=== PATIENT | male | born 1945 | race Caucasian/White ===

== ENCOUNTER 2018-01-06 07:55 | Inpatient (IN) | payer OTHER ==
[2018-01-06] VITALS (18 sets, daily range): BP systolic 86–139; BP diastolic 38–87
[~2018-01-06] VITALS: Ht 172.7 cm; Wt 62.8 kg
[2018-01-06 08:52] LABS: Basophils # (auto) 0 uL; Basophils % (auto) 0.3 % (0.0-2.0); Eosinophils # (auto) 0.1 uL; Eosinophils % (auto) 0.6 % (0.0-7.0); Hematocrit 14.9 % (41.0-53.0); Lymphocytes # (auto) 2.2 uL; Lymphocytes % (auto) 17.3 % (10.0-50.0); Mean Corpuscular Hemoglobin 32.6 pg (28.0-32.0); Mean Corpuscular Hgb Conc. 31.5 g/dL (32.0-36.0); Mean Corpuscular Volume 103.5 fL (80.0-100.0); Monocytes # (auto) 1.1 uL; Monocytes % (auto) 8.8 % (0.0-12.0); Neutrophils # (auto) 9.2 uL; Nucleated Red Blood Cells % 0.5 %; Platelet Count (auto) 158 10^3/uL (140-450); Red Blood Cells 1.44 10^6/uL (4.5-5.90); Red Cell Distribution Width 17.3 % (11.8-14.3); White Blood Cell 12.6 10^3/uL (4.4-10.8)
[2018-01-06 09:04] LABS: Hemoglobin 4.7 g/dL (13.5-17.5)
[2018-01-06 09:10] LABS: Albumin 2.2 g/dL (3.4-5.0); BUN/Creatinine Ratio 45.4; Potassium 3.5 mmol/L (3.5-5.1)
[2018-01-06 09:12] LABS: Lactic Acid w/Reflex 10.2 mmol/L (0.4-2.0)
[2018-01-06 09:15] LABS: Bilirubin, Total 0.1 mg/dL (0.2-1.0); Total Protein 4.3 g/dL (6.4-8.2)
[2018-01-06] MEDS ORDERED: SODIUM CHLORIDE 0.9% 250 ML IV ONE (10:08)
[2018-01-06 10:41] LABS: Urine Bacteria NONE SEEN /hpf (None Seen); Urine Blood 3+ /uL (Negative); Urine Mucus FEW (None Seen); Urine Specific Gravity 1.019 (1.001-1.035); Urine WBC 801 /hpf (0 - 3)
[2018-01-06] MEDS ORDERED: ALLO300T2 PO (11:13)
[2018-01-06] MEDS ORDERED: AMIO200T33 PO (11:13)
[2018-01-06] MEDS ORDERED: WARF2TAB49 PO (11:13)
[2018-01-06] MEDS ORDERED: FOLITAB22 PO (11:13)
[2018-01-06] MEDS ORDERED: MET50T PO (11:13)
[2018-01-06] MEDS ORDERED: PRAV20TA3 PO (11:13)
[2018-01-06] MEDS ORDERED: AML5T PO (11:13)
[2018-01-06] MEDS ORDERED: DILT240C PO (11:13)
[2018-01-06] MEDS ORDERED: PHYTONADIONE (VIT K)10 MG/ML 1ML VIAL IV ONE (12:00)
[2018-01-06] MEDS ORDERED: cefTRIAXone 1GM/10ml IVPUSH 10 ML IV ONE ×2 (12:30→16:00)
[2018-01-06] MEDS: SODIUM CHLORIDE 0.9% 1,000 ML IV SCH (15:52)
[2018-01-06] MEDS ORDERED: ACETAMINOPHEN 500 MG TAB PO PRN (16:00)
[2018-01-06] MEDS ORDERED: LORazepam 0.5 MG TAB PO PRN (16:00)
[2018-01-06] MEDS ORDERED: PANTOPRAZOLE 40 MG/10 ML VIAL IV ONE (16:00)
[2018-01-06] MEDS ORDERED: PROMETHAZINE HCL 25 MG/ML 1ML IV PRN (16:00)
[2018-01-06] MEDS ORDERED: TEMAZEPAM 15 MG CAP PO PRN (16:00)
[2018-01-06] MEDS ORDERED: NITROGLYCERIN 0.4 MG SL TAB SL PRN (16:00)
[2018-01-06] MEDS ORDERED: HYDROcodone-ACET 5/325MG TAB PO PRN (16:00)
[2018-01-06] MEDS ORDERED: MORPHINE SULFATE 4 MG/ML SYR/VIAL IV PRN ×2 (16:00)
[2018-01-06] MEDS: metroNIDAZOLE 500MG/100ML 100 ML IV SCH ×2 (16:03→22:06)
[2018-01-06 16:26] LABS: CRP High Sensitivity 0.04 mg/dL (< 0.3)
[2018-01-06 18:27] LABS: Hematocrit 24.4 % (41.0-53.0); Hemoglobin 7.8 g/dL (13.5-17.5)
[2018-01-06] MEDS ORDERED: THIAMINE HCL 100 MG/ML 2ML VIAL IV ONE (19:30)
[2018-01-06 21:59] LABS: INR 1.27 (0.9-1.15); Prothrombin Time 13.9 sec (9.37-12.3)
[2018-01-06] MEDS: ALBUTEROL SULF 2.5 MG/0.5ML(0.5%) NEB SOLN NEB PRN (23:07)
[2018-01-06] MEDS: IPRATROPIUM BROM 0.5 MG/2.5ML INH SOL NEB PRN (23:07)
[2018-01-07] MEDS: SODIUM CHLORIDE 0.9% 1,000 ML IV SCH (00:04)
[2018-01-07 01:00] VITALS: BP 129/68
[2018-01-07 01:02] LABS: Hematocrit 23.2 % (41.0-53.0); Hemoglobin 7.9 g/dL (13.5-17.5)
[2018-01-07] MEDS: metroNIDAZOLE 500MG/100ML 100 ML IV SCH ×2 (03:43→09:48)
[2018-01-07 05:24] VITALS: BP 104/61
[2018-01-07 06:21] LABS: INR 1.09 (0.9-1.15); Partial Thromboplastin Time 24.7 sec (22.64-33.71); Prothrombin Time 11.9 sec (9.37-12.3)
[2018-01-07 06:25] LABS: Basophils # (auto) 0 uL; Eosinophils # (auto) 0 uL; Eosinophils % (auto) 0.5 % (0.0-7.0); Hemoglobin 7.7 g/dL (13.5-17.5); Monocytes # (auto) 0.6 uL; Platelet Count (auto) 85 10^3/uL (140-450); White Blood Cell 5.2 10^3/uL (4.4-10.8)
[2018-01-07 06:27] LABS: Basophils % (auto) 0.2 % (0.0-2.0); Hematocrit 22.4 % (41.0-53.0); Lymphocytes # (auto) 1.6 uL; Lymphocytes % (auto) 30.3 % (10.0-50.0); Mean Corpuscular Hemoglobin 32.2 pg (28.0-32.0); Mean Corpuscular Hgb Conc. 34.3 g/dL (32.0-36.0); Mean Corpuscular Volume 93.9 fL (80.0-100.0); Monocytes % (auto) 11.1 % (0.0-12.0); Neutrophils % (auto) 57.9 % (37.0-80.0); Nucleated Red Blood Cells % 0.8 %; Red Blood Cells 2.38 10^6/uL (4.5-5.90); Red Cell Distribution Width 15.3 % (11.8-14.3)
[2018-01-07 06:42] LABS: Albumin 2.3 g/dL (3.4-5.0); BUN/Creatinine Ratio 45.7; Bilirubin, Total 0.3 mg/dL (0.2-1.0); Calcium 7.5 mg/dL (8.5-10.1); Potassium 3.7 mmol/L (3.5-5.1); Total Protein 4.6 g/dL (6.4-8.2)
[2018-01-07] MEDS: ALBUTEROL SULF 2.5 MG/0.5ML(0.5%) NEB SOLN NEB PRN ×2 (07:27→12:03)
[2018-01-07] MEDS: IPRATROPIUM BROM 0.5 MG/2.5ML INH SOL NEB PRN ×2 (07:27→12:03)
[2018-01-07 08:17] VITALS: BP 105/57
[2018-01-07] MEDS ORDERED: cefTRIAXone 1GM/10ml IVPUSH 10 ML IV SCH (09:00)
[2018-01-07] MEDS ORDERED: THIAMINE HCL 100 MG/ML 2ML VIAL IV SCH (10:00)
[2018-01-07] MEDS ORDERED: PANTOPRAZOLE 40 MG TAB PO SCH (10:00)
[2018-01-07] MEDS ORDERED: PANTOPRAZOLE 40 MG/10 ML VIAL IV ONE (11:45)
[2018-01-07] MEDS ORDERED: D5W/SOD CHL 0.45% 1,000 ML IV SCH (11:45)
[2018-01-07] MEDS ORDERED: FUROSEMIDE 20 MG/2 ML VIAL IV ONE (11:45)
[2018-01-07] MEDS ORDERED: PANTOPRAZOLE 80 MG in SODIUM CHL 0.9% 60 ML IV SCH (12:15)
[2018-01-07 12:17] VITALS: BP 110/60
[2018-01-07 14:39] VITALS: BP 110/60
[2018-01-07 18:10] VITALS: BP 105/61
[2018-01-07] MEDS ORDERED: chlordiazePOXIDE HCL 5 MG CAP PO SCH (19:22)
[2018-01-08 00:37] VITALS: BP 110/58
[2018-01-08 01:30] VITALS: BP 110/58
== END 2018-01-08 01:21 | disposition short-term general hospital (02) | DRG 871 ==
LOC: ER 07:55 → EDBD 07:55 → OVERFLOW 07:56 → TELE-WESTW 01-07 01:00
PROVIDERS: ADMIT Internal Medicine; ATTEND Family Medicine
PROC: 30233K1 Transfusion of Nonautologous Frozen Plasma into Peripheral Vein, Percutaneous Approach (ICD-10-PCS; principal; 2018-01-06)
PROC: 30233N1 Transfusion of Nonautologous Red Blood Cells into Peripheral Vein, Percutaneous Approach (ICD-10-PCS; 2018-01-06)
PROC: 30233P1 Transfusion of Nonautologous Frozen Red Cells into Peripheral Vein, Percutaneous Approach (ICD-10-PCS; 2018-01-06)
DX: A41.9 Sepsis, unspecified organism (principal); E43 Unspecified severe protein-calorie malnutrition; E11.65 Type 2 diabetes mellitus with hyperglycemia; I48.91 Unspecified atrial fibrillation; J44.9 Chronic obstructive pulmonary disease, unspecified; D62 Acute posthemorrhagic anemia; K92.1 Melena; N39.0 Urinary tract infection, site not specified; E78.5 Hyperlipidemia, unspecified; F41.9 Anxiety disorder, unspecified; G47.00 Insomnia, unspecified; R31.9 Hematuria, unspecified; M10.9 Gout, unspecified; T45.515A Adverse effect of anticoagulants, initial encounter; F17.210 Nicotine dependence, cigarettes, uncomplicated; I10 Essential (primary) hypertension; I25.10 Atherosclerotic heart disease of native coronary artery without angina pectoris; Z86.718 Personal history of other venous thrombosis and embolism; Y92.89 Other specified places as the place of occurrence of the external cause; Z90.49 Acquired absence of other specified parts of digestive tract; Z68.21 Body mass index [BMI] 21.0-21.9, adult; Z88.0 Allergy status to penicillin; Z79.899 Other long term (current) drug therapy
CPT/HCPCS: 36415; 36430; 51702; 71045; 74176; 76775; 80053; 80061; 81001; 82150; 82270; 82378; 83605; 83690; 83735; 84484; 85014; 85018; 85025; 85045; 85610; 85652; 85730; 86141; 86850; 86900; 86901; 86920; 87040; 87081; 87086; 93005; 94640; 96374; 96375; 99291; C9113; G0378; J3430; J3490